=== PATIENT | female | born 1990 | race Hispanic/Latino ===

== ENCOUNTER 2017-05-05 07:36 | Inpatient (IN) ==
[2017-05-05 08:01] LABS: URINE SOURCE VOIDED
[2017-05-05 08:13] LABS: BILIRUBIN URINE NEGATIVE (NEGATIVE); BLOOD URINE NEGATIVE (NEGATIVE); CLARITY CLEAR (CLEAR); COLOR YELLOW; GLUCOSE URINE NEGATIVE (NEGATIVE); LEUKOCYTES URINE NEGATIVE (NEGATIVE); NITRITE URINE NEGATIVE (NEGATIVE); PROTEIN URINE NEGATIVE (NEGATIVE); UROBILINOGEN URINE NORMAL
[2017-05-05] MEDS ORDERED: LR 1,000 ML IV SCH (08:15)
[2017-05-05] MEDS ORDERED: BRETHINE SUBQ ONE (08:16)
[2017-05-05] MEDS ORDERED: ZOFRAN IV PRN (08:37)
[2017-05-05] MEDS ORDERED: REGLAN PO ONE (08:37)
[2017-05-05] MEDS ORDERED: KEFZOL 1 GM/D5W 1 GM/50 ML IVPB IV PRN (08:37)
[2017-05-05] MEDS ORDERED: PEPCID PO PRN (08:37)
[2017-05-05] MEDS ORDERED: PEPCID PO ONE (08:37)
[2017-05-05] MEDS ORDERED: AMPICILLIN 2 GM/NS 2 GM/100 ML IVPB IV ONE (08:37)
[2017-05-05] MEDS ORDERED: STADOL IV PRN (08:37)
[2017-05-05] MEDS ORDERED: PITOCIN 30 UNITS/LR 30 UNITS/500 ML IV.SOLN IV SCH (08:37)
[2017-05-05] MEDS ORDERED: PEPCID IV PRN (08:37)
[2017-05-05] MEDS ORDERED: TYLENOL PO PRN (08:37)
[2017-05-05] MEDS ORDERED: XYLOCAINE-MPF 1% INJ ONE (08:39)
[2017-05-05] MEDS ORDERED: MINERAL OIL TOP ONE (08:39)
[2017-05-05] MEDS: LR 1,000 ML IV SCH ×2 (08:40→13:00)
[2017-05-05] MEDS ORDERED: SODIUM CHLORIDE 0.9% INJ SCH (08:45)
[2017-05-05 09:28] LABS: MANUAL DIFF NEEDED? NO
[2017-05-05 09:38] LABS: BASO% 0.3 % (0.0-0.8); EOS# 0.15 X1000 (0.0-0.7); EOS% 1.3 % (0.0-10.0); HEMATOCRIT 31.5 % (37.0-47.0); HEMOGLOBIN 9.6 g/dL (12.0-16.0); IMM GRAN# 0.13 X1000 (0.0-0.04); IMM GRAN% 1.1 % (0.0-0.5); LYMPH# 1.95 X1000 (1.2-3.4); LYMPH% 16.8 % (20.5-51.1); MCH 21.9 PG (27-31); MCHC 30.5 g/dL (33-37); MCV 71.9 FL (81-99); MONO# 0.88 X1000 (0.11-0.59); MONO% 7.6 % (1.7-9.3); MPV 10.5 FL (7.4-10.4); NEUT% 72.9 % (42.2-75.2); PLT 251 X1000 (130-400); RBC 4.38 XMIL (4.2-5.4)
[2017-05-05 10:19] LABS: RAPID HIV PRESUMPTIVE NEGATIVE; RPR NON-REACTIVE (NONREACTIVE)
[2017-05-05 10:57] LABS: UR AMPHETAMINES QUAL NONE DETECTED (NONE DETECT); UR BARBITUATES QUAL NONE DETECTED (NONE DETECT); UR BENZODIAZEPIN QUAL NONE DETECTED (NONE DETECT); UR COCAINE QUAL NONE DETECTED (NONE DETECT)
[2017-05-05 10:58] LABS: UR CANNABINOIDS QUAL NONE DETECTED (NONE DETECT); UR MDMA QUAL NONE DETECTED (NONE DETECT); UR METHADONE QUAL NONE DETECTED (NONE DETECT); UR METHAMPHETAMINE QUAL NONE DETECTED (NONE DETECT); UR OPIATES QUAL NONE DETECTED (NONE DETECT); UR OXYCODONE QUAL NONE DETECTED (NONE DETECT); UR PCP QUAL NONE DETECTED (NONE DETECT); UR TCA QUAL NONE DETECTED (NONE DETECT)
[2017-05-05] MEDS ORDERED: AMPICILLIN 1 GM/NS 1 GM/50 ML IVPB IV SCH (12:38)
[2017-05-05] MEDS ORDERED: STADOL IV ONE (12:44)
[2017-05-05] MEDS ORDERED: CYTOTEC PO PRN (14:20)
[2017-05-05] MEDS ORDERED: PERI MEDS (DERMOPLAST/NUPERCAINAL/TUCKS) MISC PRN (14:20)
[2017-05-05] MEDS ORDERED: M-M-R II VACCINE SUBQ ONE (14:20)
[2017-05-05] MEDS ORDERED: PITOCIN 30 UNITS/LR 30 UNITS/500 ML IV.SOLN IV ONE (14:20)
[2017-05-05] MEDS ORDERED: PITOCIN 20 UNITS/LR 20 UNITS/1,000 ML IV.SOLN IV SCH (14:20)
[2017-05-05] MEDS ORDERED: BOOSTRIX VACCINE IM ONE (14:20)
[2017-05-05] MEDS ORDERED: HYDROXYZINE PO PRN (14:20)
[2017-05-05] MEDS ORDERED: BENADRYL PO PRN (14:20)
[2017-05-05] MEDS ORDERED: PITOCIN IM PRN (14:20)
[2017-05-05] MEDS ORDERED: BENADRYL IV PRN (14:20)
[2017-05-05] MEDS ORDERED: MINERAL OIL PO PRN (14:20)
[2017-05-05] MEDS ORDERED: HYDROXYZINE IM PRN (14:20)
[2017-05-05] MEDS ORDERED: AMBIEN PO PRN (14:20)
[2017-05-05] MEDS ORDERED: XYLOCAINE-MPF 1% INJ PRN (14:20)
[2017-05-05] MEDS: MOTRIN PO PRN (14:32)
[2017-05-05 14:56] LABS: RUBELLA SCREEN IMMUNE (IMMUNE)
[2017-05-05] MEDS: NORCO-10 PO PRN (16:49)
[2017-05-06 05:43] LABS: MANUAL DIFF NEEDED? NO
[2017-05-06 06:27] LABS: BASO% 0.3 % (0.0-0.8); EOS# 0.23 X1000 (0.0-0.7); EOS% 1.7 % (0.0-10.0); HEMATOCRIT 27.8 % (37.0-47.0); HEMOGLOBIN 8.2 g/dL (12.0-16.0); IMM GRAN# 0.09 X1000 (0.0-0.04); IMM GRAN% 0.7 % (0.0-0.5); LYMPH# 2.97 X1000 (1.2-3.4); LYMPH% 21.8 % (20.5-51.1); MCH 21.5 PG (27-31); MCHC 29.5 g/dL (33-37); MONO# 1.07 X1000 (0.11-0.59); MONO% 7.8 % (1.7-9.3); MPV 10.7 FL (7.4-10.4); NEUT% 67.7 % (42.2-75.2); PLT 230 X1000 (130-400); RBC 3.81 XMIL (4.2-5.4)
[2017-05-06] MEDS: MOTRIN PO PRN ×2 (07:13→16:06)
--- NOTE | 2017-05-06 08:52 | OPERATIVE NOTE ---
PROCEDURE DATE: 05/05/2017 PREDELIVERY DIAGNOSES: Term , active labor, unknown care. POST DELIVERY DIAGNOSES: Term , active labor, unknown care, plus nuchal cord x1. PROCEDURE PERFORMED: Vaginal delivery. PHYSICIAN: Esteban. ANESTHESIA: IV sedation. FINDINGS: Viable male infant, 6 pounds 14 ounces, 9 and 10 Apgars. There were no lacerations or tears. Placenta was spontaneous, intact. Cord was 3 vessels. ESTIMATED BLOOD LOSS: 100 mL. COUNTS: All counts were correct. DESCRIPTION OF PROCEDURE: The patient admitted this morning in active labor. She states she is a patient of Dr. Garcias. We cannot find any records. No labs were drawn. She was started on ampicillin for unknown GBS status. She received 1 dose of antibiotics. Approximately 3 hours later, she was ruptured. Clear fluid was noted. Started on Pitocin augmentation. Reached complete cervical dilatation. Began pushing. Soon after crowned, at which point the bed was broken down. She was prepped and draped. With the next 2 contractions, she brought the baby down and delivered a viable male infant, occiput anterior, over an intact perineum. Once the head delivered, shoulders and rest of the body followed without difficulty, and infant was placed on mother's abdomen. Cord was doubly clamped and cut, and care of was taken over by nursery personnel. Cord blood was obtained. Three vessels were noted. Then gentle traction resulted in delivery of the placenta. After approximately 3 minutes, it was inspected and found to be intact. There were no vaginal or perineal lacerations. There were no clots. There was no foreign material in the vagina. All counts were correct. Estimated blood loss 100 mL. Expect routine . cc: Fei Orellana MD
[2017-05-06] MEDS: NORCO-5 PO PRN (09:39)
[2017-05-06] MEDS ORDERED: HEMOCYTE PLUS CAPSULE PO ONE (11:30)
[2017-05-06] MEDS: NORCO-10 PO PRN (21:41)
[2017-05-06] MEDS: PERICOLACE PO SCH (21:41)
[2017-05-07] MEDS: MOTRIN PO PRN (05:31)
[2017-05-07] MEDS: NORCO-10 PO PRN (05:31)
[2017-05-07] MEDS ORDERED: HEMOCYTE PLUS CAPSULE PO SCH (09:00)
[2017-05-07] MEDS: NORCO-5 PO PRN (09:54)
[2017-05-07 19:20] VITALS: BP 108/69
[2017-05-08 16:09] LABS: HIV ANTIBODY SCREEN SEE COMMENTS
[2017-05-09 06:48] LABS: HEPATITIS B SURFACE ANTIGEN SEE COMMENTS
== END 2017-05-07 12:20 | disposition home or self-care (01) ==
LOC: P.OPLD 07:36 → P.LD 07:39
PROVIDERS: ADMIT Obstetrics & Gynecology; ATTEND Obstetrics & Gynecology